=== PATIENT | male | born 1955 | race Caucasian/White ===

== ENCOUNTER 2021-10-05 11:08 | Day surgery (SDC) | payer BC ==
[2021-10-04 10:46] VITALS: BMI 46.0
[2021-10-05] MEDS ORDERED: Lidocaine 1% MPF 2 ML VIAL ONE (12:39)
[2021-10-05] MEDS ORDERED: Oxymetazoline HCl 0.05% ( 15 ML ) ONE ×2 (12:59→13:04)
[2021-10-05] MEDS ORDERED: Lidocaine 1% w/Epinephrine 1:100K 20 ML VIAL ONE (13:00)
[2021-10-05] MEDS ORDERED: Mupirocin 2% Ointment 22 GM Tube ONE (13:00)
[2021-10-05] MEDS ORDERED: Triamcinolone 40 MG/ML VIAL ONE (13:00)
[2021-10-05] MEDS ORDERED: Lidocaine 1% PF 5 ML VIAL ONE (13:18)
[2021-10-05] MEDS ORDERED: Rocuronium Bromide 10 MG/ML (10ML VIAL) ONE (13:18)
[2021-10-05] MEDS ORDERED: Midazolam HCl 2 mg/2 ml Vial ONE (13:18)
[2021-10-05] MEDS ORDERED: Dexamethasone 20 MG/5 ML VIAL ONE (13:18)
[2021-10-05] MEDS ORDERED: Fentanyl 250 MCG/5 ML VIAL ONE (13:18)
[2021-10-05] MEDS ORDERED: PROPOFOL 20 ML ONE ×2 (13:18→13:32)
[2021-10-05] MEDS ORDERED: Ondansetron PF 4 MG/2 ML Vial ONE (13:18)
[2021-10-05] MEDS ORDERED: Fentanyl 100 MCG/2 ML VIAL ONE ×2 (14:17→14:18)
[2021-10-05] MEDS ORDERED: Glycopyrrolate 0.2 MG/ML 5 ML SYRINGE ONE (14:45)
[2021-10-05] MEDS ORDERED: HYDROcodone/Acetaminophen 10/325 mg Tablet ONE (16:04)
[2021-10-10 11:13] LABS: Fungus Stain Final report (.)
== END 2021-10-05 16:20 | disposition home or self-care (01) ==
LOC: CSHSDC 11:08
PROVIDERS: ATTEND Otolaryngology Plastic Surgery within the Head & Neck
DX: J34.2 Deviated nasal septum (principal); J34.3 Hypertrophy of nasal turbinates; J32.9 Chronic sinusitis, unspecified; J34.89 Other specified disorders of nose and nasal sinuses; Z79.899 Other long term (current) drug therapy; Z79.84 Long term (current) use of oral hypoglycemic drugs; Z79.82 Long term (current) use of aspirin; E11.9 Type 2 diabetes mellitus without complications; I10 Essential (primary) hypertension
CPT/HCPCS: 36416; 87070; 87076; 87102; 87205; 87206; 88304; 88312; J1100; J2250; J2405; J2704; J3010; J3301